=== PATIENT | male | born 1985 | race American Indian/Alaskan Native ===

== ENCOUNTER 2017-05-04 06:33 | Emergency (ER) | payer OTHER ==
[2017-05-04 06:45] VITALS: BP 140/99
[2017-05-04] MEDS ORDERED: MOTRIN PO ONE (07:54)
--- NOTE | 2017-05-04 07:54 | Emergency Department Report ---
Upper Extremity - HPI Chief Complaint: Extremity Injury, Upper Stated Complaint: WRIST PAIN Time Seen by Provider: 05/04/17 07:32 Upper Extremity: Right Wrist Occurred When: Today Mechanism: Fall Severity: moderate Symptoms: Yes Pain with Movement, Yes Limited Range of Movement, Yes Swelling, No Deformity, No Numbness, No Weakness, No Bruising/Ecchymosis, No Laceration or Abrasion Other History: 31-year-old male past medical history none presents with complaint of right wrist pain. Patient states he may have sprained wrist while lifting a box at work a few days ago. Patient states that today while at work he braced himself with his right hand/wrist to prevent a fall and felt a pop sensation in his right wrist. Patient complaining of right wrist pain and swelling. Denies any other injuries. Patient states that he has broken his right wrist and right thumb in the past. States it was many years ago cannot remember exactly when. ED Review of Systems ROS: Stated complaint: WRIST PAIN Other details as noted in HPI Constitutional: denies: chills, fever Eyes: denies: eye pain, eye discharge, vision change ENT: denies: ear pain, throat pain Respiratory: denies: cough, shortness of breath, wheezing Cardiovascular: denies: chest pain, palpitations Endocrine: no symptoms reported Gastrointestinal: denies: abdominal pain, nausea, diarrhea Genitourinary: denies: urgency, dysuria Musculoskeletal: as per HPI, joint swelling (right wrist). denies: back pain, arthralgia Skin: denies: rash, lesions Neurological: denies: headache, weakness, paresthesias Psychiatric: denies: anxiety, depression Hematological/Lymphatic: denies: easy bleeding, easy bruising ED Past Medical Hx - Past Medical History Previous Medical History?: No - Surgical History Past Surgical History?: No - Social History Smoking Status: Current Every Day Smoker Substance Use Type: None - Medications Home Medications: Home Medications Medication Instructions Recorded Confirmed Last Taken Type Acetaminophen/Codeine [Tylenol 1 tab PO Q6H PRN #12 tab 05/04/17 Unknown Rx /Codeine # 3 tab] Ibuprofen [Motrin 600 MG tab] 600 mg PO Q6H PRN #30 tablet 05/04/17 Unknown Rx Upper Extremity Exam - Exam General: Vital signs noted. No distress. Alert and acting appropriately. Head and Torso: No HEENT Abnormality, No Neck Tenderness, No Chest/Lungs Abnormality, No Abdominal Tenderness, No Back Tenderness Shoulder Exam: Yes Normal Range of Motion in Shoulder, No Shoulder Tenderness, No Clavicle Tenderness, No Shoulder Deformity, No AC Joint Tenderness Arm Exam: No Arm/Humerus Tenderness, No Arm Deformity Elbow: No Elbow Tenderness, No Normal Range of Motion in Elbow, No Elbow Deformity Forearm: No Forearm Tenderness, No Forearm Deformity, No Pain with Pronation, No Pain with Supination Wrist: Yes Wrist Tenderness (right wrist pain volar aspect), Yes Normal ROM in Wrist (pain with flexion and extension), Yes Snuffbox Tenderness (there is snuffbox tenderness on exam of the right wrist), No Wrist Deformity (no obvious deformity on inspection), No Pain with Axial Thumb Compression Hand: Yes Normal ROM in Digit(s), No Hand Tenderness, No Hand Deformity, No Digit Tenderness, No Digit(s) Deformity, No Tendon Dysfunction CMS Exam: Yes Normal Distal Pulses (distal radial and ulnar pulses are intact on exam), No Broken Skin, No Normal Capillary Refill (capillary refill less than one second in all fingers), No Normal Distal Sensation (distal sensation is intact to proprioception light touch and pinprick all fingers) Hand L/R Front: 1 - Pain on palpation here Hand L/R Back: 1 - Pain on deep palpation ED Course Vital Signs 05/04/17 06:39 Temperature 97.9 F Pulse Rate 95 H Respiratory 18 Rate Blood Pressure 140/99 Blood Pressure 140/99 [Left] O2 Sat by Pulse 100 Oximetry ED Medical Decision Making - Medical Decision Making A/P: Right wrist injury, possible scaphoid bone injury 1-given patient's clinical symptoms and mechanism patient placed in a right thumb spica/volar wrist splint 2-Motrin when necessary, Tylenol No. 3 when necessary 3-I emphasized the importance of orthopedics follow-up to the patient to mitigate any long-term disability or loss of function of right hand/wrist. Patient states that he would call for follow-up appointment as soon as possible understands the importance of doing so Critical care attestation.: If time is entered above; I have spent that time in minutes in the direct care of this critically ill patient, excluding procedure time. ED Disposition Clinical Impression: Right wrist injury Qualifiers: Encounter type: initial encounter Qualified Code(s): S69.91XA - Unspecified injury of right wrist, hand and finger(s), initial encounter Disposition: TO HOME OR SELFCARE Is pt being admited?: No Does the pt Need Aspirin: No Condition: Stable Instructions: Wrist Injury (ED), Wrist Fracture in Adults (ED), SUSPECTED FRACTURE (ED), Scaphoid Fracture (ED) Prescriptions: Acetaminophen/Codeine [Tylenol /Codeine # 3 tab] 1 tab PO Q6H PRN #12 tab PRN Reason: Pain Ibuprofen [Motrin 600 MG tab] 600 mg PO Q6H PRN #30 tablet PRN Reason: Pain Referrals: JAY BRADLEY MD [Staff Physician] - 3-5 Days [facility] [Provider Group] - 3-5 Days Forms: Work/School Release Form(ED) Time of Disposition: 09:20
--- NOTE | 2017-05-04 08:43 | XRay Report ---
FINAL REPORT PROCEDURE: XR WRIST 2V RT LIMITED TECHNIQUE: Two views right wrist HISTORY: RIGHT WRIST PAIN COMPARISON: No prior studies are available for comparison. FINDINGS: Soft tissue swelling about the right wrist. There appears to be slight displacement of the carpus and hand structures ventrally on the lateral view. This is of indeterminate chronicity in could be chronic. There is ill-defined bony margin of the radial or lateral aspect of the lunate bone of indeterminate etiology. This could reflect most likely prior chronic injury or irregularity however defer to correlation with prior x-rays of on file or followup MRI. Slight bony edge base of the 4th metacarpal inconclusive on these views to exclude a subtle cortical fracture. Possible prior healed injury of the proximal right 5th metacarpal. Sclerotic band distal right radius suggest prior injury. There is slight concavity on the ventral aspect of the distal right radius on the lateral view. IMPRESSION: Swelling with predominately chronic changes suspected as described Underlying fracture not entirely excludable as detailed above ON LIMITED TWO VIEW RIGHT WRIST Followup is advised Correlation with any prior x-rays would be of use. Followup three-view right wrist and three-view right hand or otherwise CT scan may be helpful if warranted and if recent trauma has occurred and/or if there is concern for acute fracture.
== END 2017-05-04 09:34 | disposition home or self-care (01) ==
LOC: ED 06:33
DX: S69.91XA Unspecified injury of right wrist, hand and finger(s), initial encounter (principal); F17.210 Nicotine dependence, cigarettes, uncomplicated; X50.9XXA Other and unspecified overexertion or strenuous movements or postures, initial encounter; Y93.89 Activity, other specified; Y92.89 Other specified places as the place of occurrence of the external cause; Y99.8 Other external cause status
CPT/HCPCS: 99283

== ENCOUNTER 2017-07-28 02:53 | Emergency (ER) | payer OTHER ==
[2017-07-28 04:29] VITALS: BP 142/94
== END 2017-07-28 05:15 | disposition left against medical advice (07) ==
LOC: ED 02:53
DX: M54.9 Dorsalgia, unspecified (principal); Z53.21 Procedure and treatment not carried out due to patient leaving prior to being seen by health care provider